=== PATIENT | female | born 1950 | race Caucasian/White ===

== ENCOUNTER → 2017-06-23 | Outpatient (CLI) | payer MEDICARE ==
--- NOTE | 2017-06-23 20:00 | CT ---
EXAMINATION TYPE: CT abdomen wo/w con DATE OF EXAM: 06/23/2017 COMPARISON: NONE HISTORY: Right side abd pain CT DLP: 1506 mGycm Automated exposure control for dose reduction was used. TECHNIQUE: Helical acquisition of images was performed from the lung bases through the top of iliac crest to include entire abdomen. CONTRAST: Performed with Oral Contrast and with IV Contrast, patient injected with 100ml mL of Isovue 300. FINDINGS: Lung bases are clear. There is no pleural effusion. Liver spleen pancreas appear normal. There are cl ips from cholecystectomy. Bile ducts are not dilated. There is no adrenal mass. Kidneys show satisfactory contrast opacification. There is no hydronephrosi s. There is a 5 mm cortical cyst on the posterior right kidney. Ureters are not dilated. There is mil d focal cortical thinning on the posterior upper pole right kidney. Noncontrast images show no renal stone. There is no retroperitoneal adenopathy. Abdominal aorta shows mild atheromatous change. I see no bony destructive process. I see no intestinal wall thickening. There are no dilated loops. IMPRESSION: NEGATIVE CT SCAN OF THE ABDOMEN. I DO NOT SEE A CAUSE FOR RIGHT-SIDED PAIN. SMALL RIGHT RENAL CORTICA L CYST. CORTICAL THINNING IN THE POSTERIOR RIGHT KIDNEY COULD RELATE TO OLD MINIMAL CHRONIC PYELONEPH RITIS.
== END | disposition home or self-care (01) ==
LOC: RADCTMAIN 17:54
PROVIDERS: ATTEND Urology
DX: N28.1 Cyst of kidney, acquired (principal); N28.89 Other specified disorders of kidney and ureter; Z88.1 Allergy status to other antibiotic agents; Z88.2 Allergy status to sulfonamides
CPT/HCPCS: 82565; 84520; 74170; 36415; Q9967